=== PATIENT | female | born 1965 | race Hispanic/Latino ===

== ENCOUNTER 2021-11-06 14:53 | Inpatient (IN) | payer OTHER ==
[~2021-11-06] VITALS: Ht 157.5 cm; Wt 70.9 kg
[2021-11-06 16:29] LABS: ABG BASE EXCESS 1.7 mmol/L (-2.0-3.0); ABG HCO3 24.8 mmol/L (21.0-28.0); ABG OXYGEN SATURATION 91.8 % (95.0-99.0); ABG PCO2 35 mmHg (32-45)
[2021-11-06] MEDS ORDERED: CEFTRIAXONE 1G VIAL 1 GM in 0.9%NACL 100ML 100 ML IV ONE (16:30)
[2021-11-06] MEDS ORDERED: DEXAMETHASONE SOD PHOSPHATE 4 MG/ML 1ML VIAL IVP ONE (16:30)
[2021-11-06] MEDS ORDERED: DOXYCYCLINE HYCLATE 100 MG TABLET PO SCH (16:30)
[2021-11-06 16:57] LABS: BASOPHILS % (AUTO) 0.4 % (0.0-5.0); HEMATOCRIT 39.7 % (36-48); MEAN CORPUSCULAR HEMOGLOBIN 29.6 pg (27.0-33.0); MEAN CORPUSCULAR HGB CONC 33.5 g/dL (32.0-36.0); MEAN CORPUSCULAR VOLUME 88.4 fL (79-99); MONOCYTES % (AUTO) 4.3 % (3.0-13.0); PLATELET COUNT (AUTO) 238 K/uL (130-400); RED BLOOD CELL COUNT(AUTO) 4.49 MIL/uL (4.00-5.50); RED CELL DISTRIBUTION WIDTH 12.4 % (11.0-15.5); WHITE BLOOD COUNT (AUTO) 7.8 K/uL (4.8-10.8)
[2021-11-06 17:08] LABS: CREATININE 0.6 mg/dL (0.5-1.5); POTASSIUM 3.5 mmol/L (3.5-5.1)
[2021-11-06 17:12] LABS: ALBUMIN 2.8 g/dL (3.5-5.0); BILIRUBIN,TOTAL 0.3 mg/dL (0.2-1.0); TOTAL PROTEIN, SERUM 7.4 g/dL (6.0-8.3)
[2021-11-06] MEDS ORDERED: CEFTRIAXONE 1G VIAL ONE (17:30)
[2021-11-06 18:04] LABS: ERYTHROCYTE SEDIMENTATION RATE 100 MM/HR (0-30)
[2021-11-06] MEDS ORDERED: GUAIFENESIN-DM 200/20 MG 10 ML PO PRN (18:30)
[2021-11-06] MEDS ORDERED: [UNRECOGNIZED DRUG - OTHER] MISC SCH (18:30)
[2021-11-06] MEDS: CEFTRIAXONE 1G VIAL IVP SCH (18:30)
[2021-11-06] MEDS ORDERED: ONDANSETRON 4MG INJ IV PRN (18:30)
[2021-11-06] MEDS ORDERED: ERGOCALCIFEROL (VITAMIN D2) 50,000 UNIT CAPSULE PO ONE (18:30)
[2021-11-06] MEDS ORDERED: ACETAMINOPHEN 325 MG TAB PO PRN (18:30)
[2021-11-06] MEDS: DEXAMETHASONE SOD PHOSPHATE 4 MG/ML 1ML VIAL IVP SCH (18:30)
[2021-11-06] MEDS: ALBUTEROL INHALER 90MCG/INH IH SCH (18:55)
[2021-11-07] MEDS: ALBUTEROL INHALER 90MCG/INH IH SCH ×5 (00:49→23:56)
[2021-11-07] MEDS ORDERED: DOXYCYCLINE 100MG+NS 250ML IV SCH (04:30)
[2021-11-07 05:39] LABS: BASOPHILS % (AUTO) 0.3 % (0.0-5.0); HEMATOCRIT 40.4 % (36-48); LYMPHOCYTES % (AUTO) 18.8 % (21.0-51.0); MEAN CORPUSCULAR HEMOGLOBIN 28.9 pg (27.0-33.0); MEAN CORPUSCULAR HGB CONC 32.9 g/dL (32.0-36.0); MEAN CORPUSCULAR VOLUME 87.6 fL (79-99); MONOCYTES % (AUTO) 4.7 % (3.0-13.0); NEUTROPHILS % (AUTO) 73.7 % (40.0-77.0); PLATELET COUNT (AUTO) 254 K/uL (130-400); RED BLOOD CELL COUNT(AUTO) 4.61 MIL/uL (4.00-5.50); RED CELL DISTRIBUTION WIDTH 12.3 % (11.0-15.5); WHITE BLOOD COUNT (AUTO) 3.2 K/uL (4.8-10.8)
[2021-11-07] MEDS: CEFTRIAXONE 1G VIAL IVP SCH (05:53)
[2021-11-07 05:59] LABS: ALBUMIN 2.6 g/dL (3.5-5.0); BILIRUBIN,TOTAL 0.3 mg/dL (0.2-1.0); CREATININE 0.7 mg/dL (0.5-1.5); CRP QUANTITATIVE 130.9 mg/L (0.00-9.0); POTASSIUM 4.1 mmol/L (3.5-5.1); TOTAL PROTEIN, SERUM 7.4 g/dL (6.0-8.3)
[2021-11-07] MEDS ORDERED: PHARMACY COMMUNICATION MISC SCH (07:00)
[2021-11-07] MEDS: FAMOTIDINE 20MG TAB PO SCH (08:34)
[2021-11-07] MEDS ORDERED: ZINC SULFATE 220 CAPSULE PO SCH (09:00)
[2021-11-07] MEDS ORDERED: ENOXAPARIN SODIUM 40 MG/0.4 ML SYRINGE SQ SCH (09:00)
[2021-11-07] MEDS ORDERED: ASCORBIC ACID 500 MG TAB PO SCH (09:00)
[2021-11-07 09:30] LABS: HEMOGLOBIN A1C 5.7 % (4.0-6.0)
[2021-11-07] MEDS ORDERED: COMPOUND IV REFRIGERATED 1 EACH IVSOLN MISC PRN (10:00)
[2021-11-07] MEDS ORDERED: REMDESIVIR (EUA) 520 200 MG in 0.9% NACL 250ML 250 ML IV SCH (10:00)
[2021-11-07] MEDS ORDERED: PHARMACY COMMUNICATION**REMDESIVIR MISC SCH (10:00)
[2021-11-07] MEDS: BARICITINIB (EUA) 2 MG TABLET PO SCH (14:53)
[2021-11-07] MEDS ORDERED: IOHEXOL 350 MG/ML 100ML INFUS..BTL IV ONE (15:22)
[2021-11-07] MEDS: DEXAMETHASONE SOD PHOSPHATE 4 MG/ML 1ML VIAL IVP SCH (18:08)
[2021-11-07 18:15] VITALS: BP 159/99
[2021-11-07] MEDS ORDERED: OLME40TA18 PO (18:33)
[2021-11-07] MEDS ORDERED: AMLO-257 PO (18:34)
[2021-11-07 20:12] VITALS: BP 127/72
[2021-11-07] MEDS: ENOXAPARIN SODIUM 30 MG/0.3 ML SQ SCH (20:24)
[2021-11-07] MEDS ORDERED: CALCIUM CARB 500MG CHEW TAB PO SCH (21:30)
[2021-11-08] VITALS (7 sets, daily range): BP systolic 109–147; BP diastolic 67–84
[2021-11-08 04:13] LABS: BASOPHILS % (AUTO) 0.3 % (0.0-5.0); HEMATOCRIT 40.6 % (36-48); LYMPHOCYTES % (AUTO) 19.2 % (21.0-51.0); MEAN CORPUSCULAR HEMOGLOBIN 29.2 pg (27.0-33.0); MEAN CORPUSCULAR HGB CONC 32.8 g/dL (32.0-36.0); MONOCYTES % (AUTO) 4.7 % (3.0-13.0); NEUTROPHILS % (AUTO) 74.1 % (40.0-77.0); PLATELET COUNT (AUTO) 270 K/uL (130-400); RED BLOOD CELL COUNT(AUTO) 4.56 MIL/uL (4.00-5.50); RED CELL DISTRIBUTION WIDTH 12.1 % (11.0-15.5); WHITE BLOOD COUNT (AUTO) 3.4 K/uL (4.8-10.8)
[2021-11-08 04:29] LABS: ALBUMIN 2.6 g/dL (3.5-5.0); BILIRUBIN,TOTAL 0.2 mg/dL (0.2-1.0); CREATININE 0.6 mg/dL (0.5-1.5); MAGNESIUM 2.1 mg/dL (1.80-2.40); POTASSIUM 4.4 mmol/L (3.5-5.1); TOTAL PROTEIN, SERUM 6.9 g/dL (6.0-8.3)
[2021-11-08] MEDS: ALBUTEROL INHALER 90MCG/INH IH SCH (06:40)
[2021-11-08] MEDS: REMDESIVIR LABS MISC SCH (06:40)
[2021-11-08] MEDS: ENOXAPARIN SODIUM 30 MG/0.3 ML SQ SCH ×2 (08:11→19:46)
[2021-11-08] MEDS: FAMOTIDINE 20MG TAB PO SCH (08:11)
[2021-11-08] MEDS ORDERED: ALBUTEROL INHALER 90MCG/INH IH PRN (09:00)
[2021-11-08] MEDS: BARICITINIB (EUA) 2 MG TABLET PO SCH (10:22)
[2021-11-08] MEDS: REMDESIVIR (EUA) 520 100 MG in 0.9% NACL 250ML 250 ML IV SCH (14:21)
[2021-11-09 04:00] VITALS: BP 132/84
[2021-11-09 05:52] LABS: BASOPHILS % (AUTO) 0.3 % (0.0-5.0); EOSINOPHILS % (AUTO) 0.5 % (0.0-8.0); HEMATOCRIT 37.9 % (36-48); LYMPHOCYTES % (AUTO) 29.1 % (21.0-51.0); MEAN CORPUSCULAR HEMOGLOBIN 28.9 pg (27.0-33.0); MEAN CORPUSCULAR HGB CONC 33.2 g/dL (32.0-36.0); MEAN CORPUSCULAR VOLUME 86.9 fL (79-99); MONOCYTES % (AUTO) 8.9 % (3.0-13.0); NEUTROPHILS % (AUTO) 59.2 % (40.0-77.0); PLATELET COUNT (AUTO) 279 K/uL (130-400); RED BLOOD CELL COUNT(AUTO) 4.36 MIL/uL (4.00-5.50); WHITE BLOOD COUNT (AUTO) 5.9 K/uL (4.8-10.8)
[2021-11-09 06:02] LABS: ALBUMIN 2.5 g/dL (3.5-5.0); BILIRUBIN,TOTAL 0.3 mg/dL (0.2-1.0); CREATININE 0.6 mg/dL (0.5-1.5); CRP QUANTITATIVE 23.4 mg/L (0.00-9.0); POTASSIUM 3.7 mmol/L (3.5-5.1); TOTAL PROTEIN, SERUM 6.3 g/dL (6.0-8.3)
[2021-11-09] MEDS: REMDESIVIR LABS MISC SCH (06:42)
[2021-11-09 07:30] VITALS: BP 114/64
[2021-11-09] MEDS: FAMOTIDINE 20MG TAB PO SCH (07:53)
[2021-11-09] MEDS: ENOXAPARIN SODIUM 30 MG/0.3 ML SQ SCH (07:53)
[2021-11-09] MEDS ORDERED: DEXAMETHASONE 4 MG TAB PO SCH (09:00)
[2021-11-09 11:00] VITALS: BP 120/84
[2021-11-09] MEDS: BARICITINIB (EUA) 2 MG TABLET PO SCH (11:37)
[2021-11-09] MEDS: REMDESIVIR (EUA) 520 100 MG in 0.9% NACL 250ML 250 ML IV SCH (13:53)
[2021-11-09] MEDS ORDERED: DEXA6TAB PO (15:30)
== END 2021-11-09 17:45 | disposition home or self-care (01) | DRG 177 ==
LOC: EDH 14:53 → EDHIP 18:20 → 4BH 11-07 18:22
PROVIDERS: ADMIT Internal Medicine; ATTEND Internal Medicine
PROC: XW0DXM6 Introduction of Baricitinib into Mouth and Pharynx, External Approach, New Technology Group 6 (ICD-10-PCS; principal; 2021-11-07)
PROC: XW033E5 Introduction of Remdesivir Anti-infective into Peripheral Vein, Percutaneous Approach, New Technology Group 5 (ICD-10-PCS; 2021-11-07)
DX: U07.1 COVID-19 (principal); J12.82 Pneumonia due to coronavirus disease 2019; J96.01 Acute respiratory failure with hypoxia; D68.59 Other primary thrombophilia; I10 Essential (primary) hypertension; Z90.710 Acquired absence of both cervix and uterus
CPT/HCPCS: 36415; 36600; 71045; 71275; 80053; 82803; 83036; 83615; 83735; 84145; 84484; 85025; 85378; 85651; 86140; 87040; 87635; 87804; 93005; 93970; 94760; G0378; J0696; J1100; J1650; J3490; J7050; J8540; Q9967

== ENCOUNTER → 2021-11-20 | Outpatient (CLI) | payer OTHER ==
[~2021-11-20] MED LIST: AMLO-257 PO; DEXA6TAB PO; OLME40TA18 PO
[2021-11-20 10:52] LABS: APPEARANCE,URINE Clear (CLEAR); BILIRUBIN,URINE Negative (NEGATIVE); COLOR,URINE Yellow (YELLOW); GLUCOSE, URINE (UA) Negative (NEGATIVE); KETONES,URINE Negative (NEGATIVE); LEUKOCYTE ESTERASE ,URINE Trace (NEGATIVE); NITRATE,URINE Negative (NEGATIVE); OCCULT BLOOD,URINE Negative (NEGATIVE); PH,URINE 6.5 (5.0-8.0); PROTEIN,URINE Negative (NEGATIVE); UROBILINOGEN,URINE 0.2 mg/dL (0.2-1.0)
[2021-11-20 10:53] LABS: BASOPHILS % (AUTO) 0.6 % (0.0-5.0); EOSINOPHILS % (AUTO) 2.7 % (0.0-8.0); HEMATOCRIT 40.7 % (36-48); LYMPHOCYTES % (AUTO) 23.8 % (21.0-51.0); MEAN CORPUSCULAR HEMOGLOBIN 29.3 pg (27.0-33.0); MEAN CORPUSCULAR HGB CONC 33.2 g/dL (32.0-36.0); MEAN CORPUSCULAR VOLUME 88.5 fL (79-99); MONOCYTES % (AUTO) 8.1 % (3.0-13.0); NEUTROPHILS % (AUTO) 64.2 % (40.0-77.0); PLATELET COUNT (AUTO) 178 K/uL (130-400); RED CELL DISTRIBUTION WIDTH 13.8 % (11.0-15.5); WHITE BLOOD COUNT (AUTO) 4.8 K/uL (4.8-10.8)
[2021-11-20 11:23] LABS: BACTERIA,URINE Rare /HPF (None Seen); RBC,URINE 0-1 /HPF (0-1); SQUAMOUS EPITHELIAL CELL,UR Rare /HPF (0-2); WBC,URINE 0-1 /HPF (0-1)
[2021-11-20 11:39] LABS: ALBUMIN 3.4 g/dL (3.5-5.0); BILIRUBIN,TOTAL 0.5 mg/dL (0.2-1.0); CREATININE 0.5 mg/dL (0.5-1.5); CRP QUANTITATIVE 9.6 mg/L (0.00-9.0); POTASSIUM 3.5 mmol/L (3.5-5.1); THYROID STIMULATING HORMONE 0.67 uIU/mL (0.36-3.74); TOTAL PROTEIN, SERUM 7.1 g/dL (6.0-8.3)
[2021-11-20 12:07] LABS: ERYTHROCYTE SEDIMENTATION RATE 45 MM/HR (0-30)
== END | disposition home or self-care (01) ==
LOC: LAB 09:53
PROVIDERS: ATTEND Nurse Practitioner Family
DX: I10 Essential (primary) hypertension (principal); N95.0 Postmenopausal bleeding
CPT/HCPCS: 36415; 80053; 80061; 81001; 82306; 83605; 84146; 84439; 84443; 85025; 85378; 85651; 86140